=== PATIENT | male | born 1940 | race Caucasian/White ===

== ENCOUNTER → 2017-08-08 | Outpatient (CLI) | payer OTHER | LOC: BHFA 09:15 | PROVIDERS: ATTEND Internal Medicine Cardiovascular Disease | DX: I34.0 Nonrheumatic mitral (valve) insufficiency (principal); I48.91 Unspecified atrial fibrillation ==

== ENCOUNTER → 2017-12-29 | Outpatient (CLI) | payer OTHER | LOC: BHLMT 10:00 | PROVIDERS: ATTEND Internal Medicine Interventional Cardiology | DX: I48.91 Unspecified atrial fibrillation (principal) | CPT/HCPCS: 93306-PO ==

== ENCOUNTER 2018-01-03 10:21 | Inpatient (IN) | payer OTHER ==
--- NOTE | 2018-01-03 10:37 | EDPHY ---
H & P Stated Complaint: sob x 3 days no pain recent echo 3 days ago f/u Time Seen by Provider: 01/03/18 10:36 HPI/ROS: HPI: This is a 77-year-old male who presents with Chief Complaint: sob x 3 days no pain recent echo 3 days ago f/u Location: Chest Quality: Shortness of breath Duration: 3 days Signs and Symptoms: + shortness of breath at rest, + shortness of breath on exertion, + dry cough, no chest pain, no palpitations, no lower extremity edema , no wheezing, no orthopnea, no paroxysmal nocturnal dyspnea, no fever, no injury/trauma, no hemoptysis Timing: Acute on chronic Severity: Moderate to severe Context: Patient has a history of permanent AFib, cardiomyopathy, severe mitral insufficiency, B-cell lymphoma of the right mandible, ongoing tobacco use with pulmonary hypertension although patient reports he quit smoking 1 week ago, status post complete heart block and symptomatic bradycardia in October. He subsequently underwent placement of a single-chamber permanent pacemaker. He also noted a pleural effusion and had pulmonology drain 1500 cc during his October visit on the right. Head echocardiogram on 11/08/2018 that showed an EF of 35-40%. Patient reports that he feels like he can't take a deep breath right side of his lungs greater than left side of his lung. Patient denies any fever/chills/body aches/lower extremity edema/palpitation/dizziness/weakness. He does admit to generalized fatigue. Inspector Plumbing is Dr. Parks Modifying Factors: Regular medications Comment: ROS: see HPI Constitutional: No fever, no chills, no weight loss Eyes: No blurred vision Respiratory: + shortness of breath, + cough Cardiovascular: No chest pain, no palpitations, no lower extremity edema Gastrointestinal: No nausea, no vomiting, no diarrhea Genitourinary: No dysuria Extremities: No myalgias Neurologic: No weakness, no numbness Skin: No rashes Hematologic: No bruising, no bleeding MEDICAL/SURGICAL/SOCIAL HISTORY: Medical/Surgical history: Non-Hodgkin lymphoma, lymphadenopathy, HTN, A fib, mitral valve insufficiency squamous cell carcinoma, COPD, smoker, h/o prostate CA s/p prostatectomy Social history: Retired. CONSTITUTIONAL: Cachectic chronically ill-appearing elderly white male, awake and alert, no obvious distress HEENT: Atraumatic and normocephalic, PERRL, EOMI. Tympanic membranes clear. Oropharynx clear, no exudate and moist pink mucosa. Airway patent. No lymphadenopathy. No meningismus. Cardiovascular: Normal S1/S2, regular rate, regular rhythm, without murmur rub or gallop. PULMONARY/CHEST: Symmetrical and nontender. Right diminished long; left shows expiratory wheezing faint. Able to take a deep breath and then results in dry cough. Good air movement. No accessory muscle usage. Tachypnea. ABDOMEN: Soft, nondistended, nontender, no rebound, no guarding, no peritoneal signs, no masses or organomegaly. No CVAT. EXTREMITIES: 2/2 pulses, strength 5/5, no deformities, no clubbing, no cyanosis or edema. NEUROLOGICAL: no focal neuro deficits. GCS 15. SKIN: Warm and dry, leathery, jaundice, no erythema. no rash. Nails noted to be cyanotic. Good capillary refill. Source: Patient, Family, Old records Exam Limitations: No limitations - Personal History Current Tetanus/Diphtheria Vaccine: Unsure Current Tetanus Diphtheria and Acellular Pertussis (TDAP): Unsure - Medical/Surgical History Hx Asthma: No Hx Chronic Respiratory Disease: No Hx Diabetes: No Hx Cardiac Disease: No Hx Renal Disease: No Hx Cirrhosis: No Hx Alcoholism: No Hx HIV/AIDS: No Hx Splenectomy or Spleen Trauma: No Other PMH: Non-hodgkins lymphoma, lymphadenopathy, HTN, A fib, mitral valve insufficiency squamous cell carcinoma, COPD, smoker, h/o prostate CA s/p prostatectomy - Social History Smoking Status: Current every day smoker Constitutional: Initial Vital Signs Temperature (C) 37.0 C 01/03/18 10:26 Heart Rate 62 01/03/18 10:26 Respiratory Rate 24 H 01/03/18 10:26 Blood Pressure 129/84 H 01/03/18 10:26 O2 Delivery Mode Room Air Allergies/Adverse Reactions: No Known Allergies Allergy (Verified 01/03/18 10:25) Home Medications: Medication Instructions Recorded Carvedilol [Coreg (*)] 25 mg PO BID 01/03/18 Lisinopril [Zestril 10 mg (*)] 10 mg PO DAILY 01/03/18 Warfarin Sodium [Coumadin 5MG (*)] 5 mg PO SUMOWETHFRSA@16 01/03/18 Medical Decision Making - Diagnostics EKG Interpretation: 12 lead EKG: Indication: Shortness of breath Rhythm: Arrhythmia, rate of 75 beats per minute Wall: Normal Intervals: Normal QRS: Normal ST segments: Nonspecific changes INTERPRETATION: Paced The 12 lead EKG was interpreted by myself and with attending. ED Course/Re-evaluation: EKG, chest x-ray, labs including ABG ordered Difficult to obtain oxygen saturations from pulse ox; ABG showed pH is 7.39, pCO2 29, PO2 103 Suspect pleural effusion recurrence. Placed on oxygen therapy. 1100: Chest x-ray my read shows moderate right effusion Labs reviewed and Coags noted; chart review shows consistent with prior values; H/H 9.5/30.3 decreased from values in October. Troponin 0.057; 0.052 in October. Creatinine 0.9 1125: ED decision to consult for admission. Spoke with Iris from hospitalists. Patient will be admitted to Med Surg with Dr. Castro. Dr. Blake at bedside; updated him on mild bump in troponin; likely due to strain; similar value in October. This patient was seen under the supervision of my secondary supervising physician. I evaluated care for this patient independently. Discussed this patient with Dr. Diaz who did not see the patient. Differential Diagnosis: Shortness of breath including but not limited to pulmonary infectious process, COPD, pleural effusion, asthma, pulmonary embolus and congestive heart failure. - Data Points Laboratory Results: Laboratory Results 01/03/18 10:50 01/03/18 10:50 01/03/18 01/03/18 01/03/18 10:50 10:50 10:50 WBC 7.35 10^3/uL 10^3/uL (3.80-9.50) RBC 3.50 10^6/uL L 10^6/uL (4.40-6.38) Hgb 9.5 g/dL L g/dL (13.7-17.5) Hct 30.3 % L % (40.0-51.0) MCV 86.6 fL fL (81.5-99.8) MCH 27.1 pg L pg (27.9-34.1) MCHC 31.4 g/dL L g/dL (32.4-36.7) RDW 18.0 % H % (11.5-15.2) Plt Count 167 10^3/uL 10^3/uL (150-400) MPV 9.0 fL fL (8.7-11.7) Neut % (Auto) 83.3 % H % (39.3-74.2) Lymph % (Auto) 4.1 % L % (15.0-45.0) [place] % (Auto) 11.8 % % (4.5-13.0) Eos % (Auto) 0.0 % L % (0.6-7.6) Baso % (Auto) 0.4 % % (0.3-1.7) Nucleat RBC Rel Count 0.0 % % (0.0-0.2) Absolute Neuts (auto) 6.12 10^3/uL 10^3/uL (1.70-6.50) Absolute Lymphs (auto) 0.30 10^3/uL L 10^3/uL (1.00-3.00) Absolute Monos (auto) 0.87 10^3/uL H 10^3/uL (0.30-0.80) Absolute Eos (auto) 0.00 10^3/uL L 10^3/uL (0.03-0.40) Absolute Basos (auto) 0.03 10^3/uL 10^3/uL (0.02-0.10) Absolute Nucleated RBC 0.00 10^3/uL 10^3/uL (0-0.01) Immature Gran % 0.4 % % (0.0-1.1) Immature Gran # 0.03 10^3/uL 10^3/uL (0.00-0.10) PT 35.3 SEC H SEC (12.0-15.0) INR 3.56 H (0.83-1.16) APTT 73.4 SEC H SEC (23.0-38.0) Sodium 140 mEq/L mEq/L (135-145) Potassium 4.4 mEq/L mEq/L (3.5-5.2) Chloride 106 mEq/L mEq/L (97-110) Carbon Dioxide 17 mEq/l L mEq/l (22-31) Anion Gap 17 mEq/L H mEq/L (8-16) BUN 23 mg/dL mg/dL (7-23) Creatinine 0.9 mg/dL mg/dL (0.7-1.3) Estimated GFR > 60 Glucose 114 mg/dL H mg/dL (70-100) Calcium 8.8 mg/dL mg/dL (8.5-10.4) Total Bilirubin 1.3 mg/dL mg/dL (0.1-1.4) Conjugated Bilirubin 0.7 mg/dL H mg/dL (0.0-0.5) Unconjugated Bilirubin 0.6 mg/dL mg/dL (0.0-1.1) AST 56 IU/L IU/L (17-59) ALT 42 IU/L IU/L (21-72) Alkaline Phosphatase 87 IU/L IU/L (38-126) Troponin I 0.057 ng/mL H ng/mL (0.000-0.034) NT-Pro-B Natriuret Pep Pending Total Protein 6.4 g/dL g/dL (6.3-8.2) Albumin 3.7 g/dL g/dL (3.5-5.0) Departure - Departure Disposition: [facility] Inpatient Acute Clinical Impression: Recurrent right pleural effusion, Normocytic anemia, Pacemaker, Hypoxia, Severe mitral insufficiency, Elevated troponin Condition: Fair
--- NOTE | 2018-01-03 10:49 | CPEKG ---
Heart Rate: 75 RR Interval: 800 P-R Interval: 188 QRSD Interval: 172 QT Interval: 432 QTC Interval: 483 P [place]: 0 QRS [place]: -84 T Wave [place]: 90 EKG Severity - ABNORMAL ECG - EKG Impression: VENTRICULAR-PACED RHYTHM Electronically Signed By: Abdelrahman Lebron 06-Jan-2018 14:38:29
[2018-01-03 10:59] LABS: PLATELET COUNT 167 10^3/uL (150-400)
[2018-01-03 11:10] LABS: INR 3.56 (0.83-1.16); PROTIME(PATIENT) 35.3 SEC (12.0-15.0)
[2018-01-03] MEDS ORDERED: ACETAMINOPHEN 325 MG TAB PO PRN (11:58)
[2018-01-03] MEDS ORDERED: ONDANSETRON DISINTEGRATING 4 MG TAB PO PRN (11:58)
[2018-01-03] MEDS ORDERED: ONDANSETRON 4 MG/2 ML VIAL IVP PRN (11:58)
[2018-01-03] MEDS ORDERED: IOPAMIDOL (ISOVUE 370) 100 ML BTL IV ONE (12:26)
[2018-01-03] MEDS ORDERED: ALBUTEROL 3 ML DEYVIAL IH PRN (13:23)
[2018-01-03] MEDS ORDERED: ZOLPIDEM TARTRATE 5 MG TAB PO PRN (13:23)
--- NOTE | 2018-01-03 13:23 | PDGENHP ---
History and Physical History and Physical: CC: Gradually progressive exertional dyspnea and now dyspnea at rest HISTORY: This patient with a history of chronic lung and heart disease comes to the ER today because of worsening shortness of breath over period of several weeks. He is chronically short of breath chronically hypoxemic. However his symptoms of gotten to the point we really can't this get up to walk across the room. I asked him if he had weighed himself recently and he said he has not been able to even walk to his scale and get on the scale. The patient denies any cough this time though admits to having had a cough 2 or 3 weeks ago for a few days. There has been no fever, no angina could no palpitations, no swelling of the legs, no orthopnea or paroxysmal nocturnal dyspnea. There is no pleuritic pain of any kind. He does feel a vague fullness in the right side of his chest that reminds him of old pleural effusion he had a couple years ago. Notably he did have an echocardiogram done at his rehab spec's office 6 weeks ago and this showed presence of a right-sided pleural effusion. In terms of respiratory history, did have a right-sided pleural effusion little over a year ago that was treated with thoracentesis. Because of prior history of lymphomas, the patient had site of the studies done on this fluid and it was negative for malignancy. As for lung history he does have known COPD, chronic hypoxemia, severe pulmonary hypertension. In terms of heart disease he now has known severe mitral regurgitation and decreased systolic ventricular function with a global cardiomyopathy, no coronary history. He is a long-term heavy smoker and has been tapering his smoking down the point where he is only having an occasional cigarette. This decrease in smoking is quite recent. The patient also admits to gradually increasing early satiety and has been eating less. There is no pain nausea vomiting or change in bowel function associated with this. When I asked about weight loss he says he has not been able to weigh himself due to his dyspnea, however he does not notice that his clothes are fitting any tighter or looser than in the past. ROS: A comprehensive 10 system review revealed no other significant findings PAST MEDICAL HISTORY: COPD, chronic hypoxemia and respiratory failure Severe pulmonary hypertension 1 previous episode right-sided pleural effusion October 2016 Severe mitral regurgitation Global cardiomyopathy most recently echocardiogram showed ejection fraction 38% in October 2017 Atrial fibrillation on chronic anticoagulation Prostate cancer Hodgkin's lymphoma, and subsequently a B-cell lymphoma, and as far as the patient knows Dr. Presley feels these have been cured FAMILY MEDICAL HISTORY: Hypertension Myocardial infarction SOCIAL HISTORY: Lives alone in a private house Does not use oxygen Chronic cigarette smoking currently trying to quit Chronic alcohol use He has 3 children 1 of whom is a son named Lex who is here at the bedside with him, Lex is very supportive The patient is choices to have a full cor order in his chart MEDICATIONS: The patients list has been reconciled by our clinical pharmacist in the EMR. I have reviewed the list and ordered appropriate medicines. I have held his Coumadin right now because of excessive elevation INR, as well as need to get a pleural fluid sample PHYSICAL EXAMINATION: Vital Signs: Some tachypnea otherwise stable pulse blood pressure and no fever Melter Supervisor Electric Arc Furnace: Paced rhythm Examination: General: alert, oriented, good mentation, overall fairly relaxed Skin: warm, dry, good color, no rash or other concerning lesions HEENT: Missing several teeth top and bottom, with 1 severely carious lower molar which is almost completely gone Neck: no mass or adenopathy, some JVD Resps: Mildly labored at rest on oxygen Lungs: breath sounds are Almost absent but otherwise clear Heart: regular, no murmur but heart tones are barely audible Abdomen: soft, nondistended, nontender, +BS, no mass Upper Extremities: normal Lower Extremities: no edema, warm, diminished pulses at feet but no ischemic changes No Bleeding or bruising Neurologic: normal speech/language, normal control officer manager, no focal weakness IV site: looks normal LABORATORY DATA: Hemoglobin at 9.5 last measured at 13.8 11/12, MCV of 86 is decreased from 91 measured in 2016 Platelets are now normal, last measured low likely due to Hodgkin's treatment Chemistries show evidence of a metabolic acidosis with anion gap is 17 CO2 17, severe elevation of BNP, troponin 0.05 An ABG is done in the ER and shows compensated metabolic acidosis INR is elevated at 3.6 RADIOLOGY STUDIES: Two-view chest x-rays done in the ER and I reviewed the images from this as well as the images from 2 x-rays in 2016. There is right-sided pleural effusion and the study raises a question of a right lung mass due to a rounding density at the edge of the pleural effusion. The effusion is in the same location that his effusion was located in 2016. Otherwise there is no evidence of bony pulmonary or cardiac changes I ordered a CT scan of the chest and I reviewed the images from this though there is not a reading from the radiologist. I do not see anything that is definitely a mass. There is a moderately large in free flowing right-sided pleural effusion with some atelectasis, no pneumonia, and I do not see any PE. I ordered an abdominal x-ray and have reviewed the images. There is no definite obstruction anywhere. 12 LEAD EKG: Paced rhythm with ventricular paced QRS complexes, nothing that appears as ischemic and no apparent problems with the pacer ASSESSMENT: 1- ACUTE HYPOXEMIC RESPIRATORY FAILURE -I believe this is most likely primarily due to COPD exacerbation; notably he uses no medicines for COPD at home -his right-sided pleural effusion is likely contributing to his symptoms, however it is present for at least 2 months as it was seen on echo at rehab spec office in October -he has left and right-sided heart disease and a very high BNP, but no pulmonary or peripheral edema; doubt diuretics would help and there is no sign of acute heart disease at this time (I do not believe his elevated troponin represents a coronary episode) -no sign of PE on the CT scan by my read but the CT scan not read by radiology yet 2- RIGHT-SIDED PLEURAL EFFUSION -notably this is in the same location as his pleural effusion from 14 months ago -there is history of lymphomas, though cytologies were -14 months ago from the effusion then 3- SUSPECT COPD EXACERBATION -again he is not on any medicines for this at home; no current symptoms to suggest infection 4- COMPENSATED METABOLIC ACIDOSIS -I am not certain as to the etiology of this at present 5- RECENT ONSET AND WORSENING OF EARLY SATIETY of unknown etiology -worry about a GI malignancy particularly with his smoking and alcohol history though ulcer disease could also cause this 6- 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 7- EXCESSIVE ANTICOAGULATION FOR HIS ATRIAL FIBRILLATION -otherwise AFib is rate controlled and he is not in failure 8- NEW ONSET OF ANEMIA SINCE 11/12; NORMOCYTIC THOUGH MCV DECREASED FROM PRIOR -particularly given his GI symptoms would worry about iron deficiency anemia from a GI lesion, also potentially could be related to a lymphoma recurrence 9- CHRONIC COPD AND HYPOXEMIA WITH SEVERE PULMONARY HYPERTENSION 10- CHRONIC STABLE APPEARING HEART DISEASE WITH AFIB, SEVERE MR, GLOBAL CARDIOMYOPATHY, RIGHT VENTRICULAR FAILURE AND PULMONARY HYPERTENSION 11- HISTORY OF HODGKIN'S AND THEN B-CELL LYMPHOMA, PREVIOUSLY TREATED BY DR. PRESLEY -felt to be in the remission at the time of his last visit though he does not remember what that was, I suspect a year and half ago PLANS: -inpatient admission hospital due to the severity of the patient's symptoms and multiple issues required to getting him fully evaluated and treated as below -oxygen support -scheduled nebulized bronchodilators -at inhaled long-acting bronchodilator steroid combination -oral prednisone -hold his INR now and give him a dose of vitamin K so that we can get a thoracentesis done; cytology will be necessary due to lymphoma history; expect this will take a day or to get INR in right range -this time do not feel diuretics will be helpful but will reassess fluid status -I will order 1 more troponin but I do not feel that his minimally elevated troponin represents a coronary disease, would only do further cardiac assessment for this if there is a notable increase on the next troponin -check iron and ferritin studies; may need other studies to assess his anemia, etiology -plan on upper GI swallow study tomorrow to begin assessment of his early satiety; may need further study after this -repeat chemistry to follow up on his metabolic acidosis -nutritional supplements and portable router operator consult I have reviewed the patient's case in detail with Dr. Winters I have reviewed the patient's past medical records as part of this assessment, including past hospital admission records, imaging studies, lab data
[2018-01-03] MEDS ORDERED: PHYTONADIONE 2.5 MG/2.5 ML ORAL UDL PO ONE ×2 (13:26→15:45)
[2018-01-03] MEDS ORDERED: predniSONE 20 MG TAB PO ONE ×2 (13:29→15:45)
[2018-01-03] MEDS: LISINOPRIL 10 MG TAB PO SCH (14:08)
[2018-01-03] MEDS: CARVEDILOL 25 MG TAB PO SCH ×2 (14:08→21:17)
[2018-01-03] MEDS: BUDESONIDE/FORMOTEROL 80/4.5 60 PUFFS/MDI IH SCH ×2 (14:36→20:14)
--- NOTE | 2018-01-03 14:53 | GHP ---
[f rep st] HISTORY AND PHYSICAL DATE OF ADMISSION: 01/03/2018 HISTORY OF PRESENT ILLNESS: The patient is a 77-year-old gentleman followed by my partner, Dr. Jeremiah Layton. He was diagnosed with a stage IIA diffuse large B-cell lymphoma in January of 2016. He prese nted with a mass in the right jaw, right submandibular area. He was treated with 3 cycles of R-CHOP chemotherapy followed by external beam radiation therapy, which he completed in May of 2016. He has not seen Dr. Layton for over 2 years. More recently, the patient has had cardiac issues with atrial fibrillation, cardiomyopathy and severe mitral insufficiency. He has a pacemaker. He presented to the hospital with bradycardia due to hea rt block in October of 2017 and had a pacemaker placed at that time. He had a pleural effusion at t hat time. This was drained. He has a known left ventricular ejection fraction of 35%-40%. The patient was brought to the emergency department today with worsening dyspnea. He denied any prec eding infection, fevers or chills. He admitted to generalized fatigue. A CT scan done in the emergency department showed a moderate right-sided pleural effusion. There was no evidence of pathologic lymphadenopathy and no evidence of pulmonary embolus. He has been admitte d for further management. When seen this afternoon, he is accompanied by his son. He denies recent weight loss, night sweats, or adenopathy. PAST MEDICAL HISTORY: 1. Diffuse large B-cell lymphoma as outlined above. 2. Atrial fibrillation. 3. Cardiomyopathy. 4. Mitral insufficiency. 5. Pulmonary hypertension. PAST SURGICAL HISTORY: Prostatectomy in 1994. SOCIAL HISTORY: The patient is . His son lives locally. REVIEW OF SYSTEMS: As outlined above. PHYSICAL EXAM: The patient is lying comfortably in bed. He is using supplemental oxygen. There is no scleral icterus. No palpable submandibular, cervical or supraclavicular adenopathy. There is a p acemaker in the right chest wall. HEART: Regular. LUNGS: Sounds are decreased at the right base. ABDOMEN: Soft, nontender. No hepatomegaly. No splenomegaly. Patient alert, oriented, and appropr iate. LABORATORY STUDIES: CT results as above. I personally reviewed his CT with Radiology. White count 7.3, hemoglobin 9.5, hematocrit 30.3, platelet count 167,000, absolute neutrophil count i s 6120. Sodium 140, potassium 4.4, chloride 106, bicarb 17, BUN 23, creatinine 0.9. Bilirubin is 1. 3, AST 56, ALT 42, alkaline phosphatase 87. IMPRESSION: 1. Recent history of stage IIA diffuse large B-cell lymphoma, status post successful treatment. 2. Cardiomyopathy. 3. Atrial fibrillation. 4. New right pleural effusion with associated dyspnea. 5. Multifactorial anemia. The patient is a pleasant 77-year-old gentleman who is admitted with dyspnea, likely related to his m ultiple cardiac issues and a new right pleural effusion. I reviewed his CT with Radiology. There is no evidence of recurrent lymphoma and he is clinically st ill in remission. The patient will likely undergo a diagnostic and therapeutic thoracentesis. I will defer management of his heart failure to the hospitalist service and his radio performer. His anemia is likely multifactorial. I will add iron studies to his labs. Our service will continue to follow him during his hospital stay and I will inform Dr. Layton of his admission. /[id number]/MODL
[2018-01-03] MEDS: IPRATROPIUM/ALBUTEROL 3 ML DEYVIAL IH SCH ×2 (15:48→20:15)
--- NOTE | 2018-01-03 15:51 | PDMN ---
Medical Necessity Medical necessity: Pt meets IP criteria per MD; est los >2 mn for acute hypoxemic respiratory failure most likely r/t COPD exacerbation, R sided pleural effusion, compensated metabolic acidosis & moderate protein calorie malnutrition w/mild cachexia; admit IP due to severity of symptoms & multiple medical issues requiring further workup/monitoring, supportive care & therapies ; hx hodgkin's lymphoma, COPD, AFIB on AC, severe pulmonary htn & mitral regurgitation; per H&P & order 01/03
[2018-01-04 05:14] LABS: PLATELET COUNT 131 10^3/uL (150-400)
[2018-01-04 05:21] LABS: INR 2.22 (0.83-1.16); PROTIME(PATIENT) 24.6 SEC (12.0-15.0)
[2018-01-04] MEDS: IPRATROPIUM/ALBUTEROL 3 ML DEYVIAL IH SCH ×4 (05:54→19:44)
[2018-01-04] MEDS: BUDESONIDE/FORMOTEROL 80/4.5 60 PUFFS/MDI IH SCH ×2 (07:58→19:44)
[2018-01-04] MEDS ORDERED: predniSONE 20 MG TAB PO SCH (09:00)
[2018-01-04] MEDS: CARVEDILOL 25 MG TAB PO SCH ×2 (09:12→21:16)
[2018-01-04] MEDS: LISINOPRIL 10 MG TAB PO SCH ×2 (09:12→10:19)
--- NOTE | 2018-01-04 09:39 | HOSPPROG ---
Hospitalist Progress Note Assessment/Plan: Acute on chronic hypoxemic respiratory failure - COPD plus pleural effusion likely playing a role. He does not appear volume overloaded or in acute HF despite elevated BNP. -cont nebs, O2, steroids Pleural effusion - Had thora in 10/2016 which was neg for malignancy. -plan for thoracentesis when INR <1.6, ordered for AM, will send cytology along with fluid analysis for light's criteria Systolic / diastolic heart failure - EF 38%. BNP quite elevated though he doesn 't appear significantly fluid overloaded. -will request cardiology consult in am to help sort out volume status and indication for diuresis Atrial fibrillation - rate controlled on Coreg. INR therapeutic, s/p 5 mg po Vit K. -reversing INR for thora as above, repeat Vit K today, 2.5 mg Severe MR Pulmonary hypertension Anemia - Fe def, hgb 9.5 --> 7.6 RLL pulmonary nodule - needs [address] f/u H/O lymphoma Full code Dispo - cont inpt Subjective: Pt feels better. Was not using O2 at home, was likely hypoxic. Denies CP or SOB at rest but he and his son and daughter agree he has been more dyspneic with activity. No fevers. Objective: Vital Signs Temp Pulse Resp BP Pulse Ox 36.6 C 77 18 114/64 97 01/04/18 08:50 01/04/18 09:12 01/04/18 08:50 01/04/18 09:12 01/04/18 08:50 Laboratory Results 01/04/18 04:41 01/04/18 04:41 01/03/18 01/04/18 01/05/18 05:59 05:59 05:59 Intake Total 1050 Output Total 350 300 Balance 700 -300 PT 24.6 SEC (12.0-15.0) H D 01/04/18 04:41 INR 2.22 (0.83-1.16) H 01/04/18 04:41 - Physical Exam Constitutional: no apparent distress Eyes: PERRL Ears, Nose, Mouth, Throat: moist mucous membranes Cardiovascular: regular rate and rhythym Respiratory: no respiratory distress, reduced air movement, inspiratory crackles Gastrointestinal: normoactive bowel sounds, soft, non-tender abdomen Skin: warm Musculoskeletal: full muscle strength Neurologic: AAOx3 ICD10 Worksheet Patient Problems: Problems Problem Status Onset Elevated troponin Acute Hypoxia Acute Normocytic anemia Acute Pacemaker Acute Recurrent right pleural effusion Acute Severe mitral insufficiency Acute chronic disease mgmt/transitional care Acute Bradycardia Acute
[2018-01-04] MEDS ORDERED: PHYTONADIONE 2.5 MG/2.5 ML ORAL UDL PO ONE (10:44)
[2018-01-04 20:37] VITALS: RESP 20; TEMP 97.9; O2SAT 100
[2018-01-04] MEDS ORDERED: LISINOPRIL 10 MG TAB PO SCH (21:00)
[2018-01-04 21:18] VITALS: BP 106/64; PULSE 75
[2018-01-05] MEDS: IPRATROPIUM/ALBUTEROL 3 ML DEYVIAL IH SCH ×2 (04:57→08:13)
--- NOTE | 2018-01-05 05:45 | EDPHY ---
Inpatient Procedure Narrative: I was called to the floor for a patient in cardiac arrest. Patient required airway management. On arrival I found the patient unresponsive with CPR in progress. Heels pulseless and apneic. Indication for the procedure was cardiac arrest. The patient was preoxygenated with 100% oxygen by face mask. The patient was orally endotracheally intubated under direct visualization with a 7.5 ETT. Tracheal intubation was confirmed with misting on the tube; breath sounds were auscultated equally bilaterally; appropriate color change with [employer] CO2 detector, capnography waveform is appropriate, oxygen saturation after procedure is undetectable. Chest X-ray shows ETT in good position. The procedure was performed by myself.
[2018-01-05] MEDS ORDERED: MAGNESIUM SULFATE 1 GM/2 ML VIAL IV ONE (06:35)
[2018-01-05] MEDS ORDERED: CALCIUM CHLORIDE 1 GM/10 ML INJ IVP ONE (06:35)
[2018-01-05] MEDS ORDERED: SODIUM BICARBONATE 50 MEQ/50 ML SYR IVP ONE (06:36)
[2018-01-05] MEDS ORDERED: EPINEPHrine 1 MG/10 ML SYR IVP ONE (06:36)
[2018-01-05] MEDS: BUDESONIDE/FORMOTEROL 80/4.5 60 PUFFS/MDI IH SCH (08:13)
== END 2018-01-05 08:49 | disposition expired | DRG 189 ==
LOC: F1N 13:53
PROVIDERS: ADMIT Hospitalist; ATTEND Hospitalist
PROC: 0BH17EZ Insertion of Endotracheal Airway into Trachea, Via Natural or Artificial Opening (ICD-10-PCS; principal; 2018-01-05)
DX: J96.01 Acute respiratory failure with hypoxia (principal); E43 Unspecified severe protein-calorie malnutrition; I11.0 Hypertensive heart disease with heart failure; I42.9 Cardiomyopathy, unspecified; I50.40 Unspecified combined systolic (congestive) and diastolic (congestive) heart failure; J44.1 Chronic obstructive pulmonary disease with (acute) exacerbation; E87.2 Acidosis; I46.9 Cardiac arrest, cause unspecified; I48.2 Chronic atrial fibrillation; I34.0 Nonrheumatic mitral (valve) insufficiency; I27.20 Pulmonary hypertension, unspecified; R68.81 Early satiety; Z72.0 Tobacco use; Z95.0 Presence of cardiac pacemaker; Z85.46 Personal history of malignant neoplasm of prostate; Z79.01 Long term (current) use of anticoagulants; Z85.72 Personal history of non-Hodgkin lymphomas
CPT/HCPCS: 82947-QW; 97161-GP; G8978-GP-CK; G8979-GP-CI; J3475; J7512; Q9967